=== PATIENT | male | born 1950 | race Native Hawaiian/Other Pacific Islander ===

== ENCOUNTER → 2018-01-23 | Outpatient (CLI) | payer MEDICARE, OTHER ==
[2018-01-23 15:55] LABS: Blood Urea Nitrogen 16 mg/dL (9-20)
--- NOTE | 2018-01-26 08:20 | CT ---
EXAMINATION TYPE: CT angio abdomen pelvis DATE OF EXAM: 01/23/2018 COMPARISON: CT abdomen and pelvis September 30, 2011. HISTORY: Follow up aneurysm per order. Pain in back and down legs per patient. CT DLP: 1630.5 mGycm, Automated Exposure Control for Dose Reduction was Utilized. CONTRAST: CTA scan of the abdomen and pelvis is performed without oral and without and with IV Contrast, patien t injected with 100 mL of Isovue 370. Three-D reconstructed images are created on an independent work station and reviewed. FINDINGS: VASCULAR: Aneurysmal change to the infrarenal abdominal aorta measures up to 3.6 cm transversely axia l image 43, slightly larger from prior study where it measured up to 3.3 cm. In addition there is mor e prominent noncalcified mural thrombus occupying greater than 50% of the nondalton lumen. Aneurysm does not extend into iliac bifurcation. Length of aneurysm is roughly 4 to 5 cm. There is patent celiac a xis, SMA, and bilateral single renal arteries with slightly more prominent plaque noted at origin of right renal artery, no definitive significant stenosis is present. There is a patent CUATE identified. There is moderate calcified plaque bilateral common iliac arteries with moderate to severe calcified plaque in the external iliac arteries. There are patent internal iliac arteries with mild to moderate calcified plaque. There is moderate calcified plaque in common femoral arteries extending into super ficial and deep femoral branches. No significant focal stenosis is clearly seen. LUNG BASES: Coronary artery calcification is present which is noted marker for coronary artery diseas e.. LIVER/GB: Heterogeneous hypodense appearance of liver is consistent with diffuse fatty infiltration. Gallbladder is not visualized and presumed surgically absent. PANCREAS: No significant abnormality is seen. SPLEEN: Calcifications scattered throughout the spleen are redemonstrated presumed product of old gra nulomatous disease. ADRENALS: No significant abnormality is seen. KIDNEYS: No significant abnormality is seen. BOWEL: Sutures from appendectomy are seen at base of cecum. No suspicious bowel dilatation. Debris-fi lled stomach suggest recent meal ingestion. PROSTATE/SEMINAL VESICLES: Prostate gland is slightly enlarged in size bulging on bladder base, under lying BPH is suspected. Correlate clinically. LYMPH NODES: No greater than 1cm abdominal or pelvic lymph nodes are appreciated. OSSEOUS STRUCTURES: Calcified disc L1-L2 level is present. Vacuum disc phenomenon L4-L5 level is pres ent. There is moderate to advanced disc space narrowing with vacuum disc phenomenon and endplate scle rosis L5-S1 level. Moderate multilevel spurring in the spine is present OTHER: No significant additional abnormality is seen. IMPRESSION: Aneurysmal change to infrarenal abdominal aorta up to 3.6 cm in diameter with extensive i ntramural thrombus. Advise vascular surgical referral or consultation if has not been performed.
== END ==
LOC: RADCTMAIN 15:25
PROVIDERS: ATTEND Surgery
DX: I71.4 Abdominal aortic aneurysm, without rupture (principal)
CPT/HCPCS: 82565; 84520; 36415; 74174; Q9967

== ENCOUNTER → 2018-06-23 | Outpatient (CLI) | payer MEDICARE, OTHER | END | disposition home or self-care (01) | LOC: RADUSWWP 13:26 | PROVIDERS: ATTEND Family Medicine | DX: I25.119 Atherosclerotic heart disease of native coronary artery with unspecified angina pectoris (principal) | CPT/HCPCS: 93923 ==

== ENCOUNTER → 2019-01-01 | Outpatient (CLI) | payer MEDICARE ==
[2019-01-01 11:41] LABS: Basophils % (A) 1 %; Eosinophils # (A) 0.3 k/uL (0-0.7); Eosinophils % (A) 5 %; HCT 37.4 % (39.0-53.0); HGB 12.2 gm/dL (13.0-17.5); Lymphocytes # (A) 1.9 k/uL (1.0-4.8); Lymphocytes % (A) 33 %; MCH 31.9 pg (25.0-35.0); MCHC 32.7 g/dL (31.0-37.0); MCV 97.4 fL (80.0-100.0); Mean Platelet Volume 6.7; Monocytes # (A) 0.3 k/uL (0-1.0); Monocytes % (A) 5 %; Neutrophils # (A) 3.1 k/uL (1.3-7.7); Neutrophils % (A) 55 %; Platelet Count 216 k/uL (150-450); RBC 3.84 m/uL (4.30-5.90); RDW 14.9 % (11.5-15.5); WBC 5.7 k/uL (3.8-10.6)
[2019-01-01 11:53] LABS: African American GFR (CKD) >90 (>60 ml/min/1.73 sqM); Anion Gap 9 mmol/L; Blood Urea Nitrogen 19 mg/dL (9-20); Carbon Dioxide 26 mmol/L (22-30); Chloride 103 mmol/L (98-107); Potassium 4.9 mmol/L (3.5-5.1); Sodium 138 mmol/L (137-145)
== END | disposition home or self-care (01) ==
LOC: LABPAT 11:01
PROVIDERS: ATTEND Surgery
DX: Z01.812 Encounter for preprocedural laboratory examination (principal); I71.4 Abdominal aortic aneurysm, without rupture; I77.1 Stricture of artery
CPT/HCPCS: 80051; 82565; 84520; 85025

== ENCOUNTER 2019-01-12 06:30 | Inpatient (IN) | payer MEDICARE ==
[2019-01-08 14:24] VITALS: BMI 29.5
[~2019-01-12 06:30] MED LIST: SODIUM CHLORIDE 0.9% 1,000 ML in EMPTY BAG 1 BAG IV ONE
[2019-01-12 07:12] LABS: Glucose,Whole Blood 167 mg/dL (75-99)
[2019-01-12] MEDS ORDERED: MIDAZOLAM 2 MG/2 ML VIAL ONE (07:42)
[2019-01-12] MEDS ORDERED: PROPOFOL 10 MG/ML 20 ML VIAL IV ONE (07:42)
[2019-01-12] MEDS ORDERED: LABETALOL 5 MG/ML VIAL MDV ONE (07:42)
[2019-01-12] MEDS ORDERED: fentaNYL (PF) 50 MCG/ML 2 ML AMP ONE (07:42)
[2019-01-12] MEDS ORDERED: LIDOCAINE 1% INJ 10MG/ML (20 ML MDV) ONE (07:42)
[2019-01-12] MEDS ORDERED: GLYCOPYRROLATE 0.2 MG/ML 2 ML VIAL ONE (07:42)
[2019-01-12] MEDS ORDERED: PHENYLEPHRINE-0.9% NACL SYG 1 MG/10 ML SYRINGE ONE (07:42)
[2019-01-12] MEDS ORDERED: HEPARIN SODIUM,PORCINE 10,000 UNIT/ML 1 ML VIAL ONE (07:42)
[2019-01-12] MEDS ORDERED: NEOSTIGMINE 1 MG/ML 10 ML VIAL ONE (07:42)
[2019-01-12] MEDS ORDERED: PROTAMINE SULFATE 10 MG/ML 5 ML VIAL IV ONE (07:42)
[2019-01-12] MEDS ORDERED: ROCURONIUM BROMIDE 10 MG/ML 10 ML VIAL IV ONE (07:42)
[2019-01-12] MEDS ORDERED: SUCCINYLCHOLINE CHLORIDE 100 MG/5 ML SYR IV ONE (07:42)
[2019-01-12] MEDS ORDERED: ePHEDrine SULFATE/0.9% NACL/PF 50 MG/5 ML SYRINGE IV ONE (07:42)
[2019-01-12 08:19] LABS: Basophils # (A) 0.1 k/uL (0-0.2); Basophils % (A) 1 %; Eosinophils # (A) 0.3 k/uL (0-0.7); Eosinophils % (A) 4 %; Lymphocytes # (A) 2.5 k/uL (1.0-4.8); Lymphocytes % (A) 38 %; MCH 31.5 pg (25.0-35.0); MCHC 33.3 g/dL (31.0-37.0); MCV 94.8 fL (80.0-100.0); Mean Platelet Volume 7.1; Monocytes # (A) 0.4 k/uL (0-1.0); Monocytes % (A) 5 %; Neutrophils # (A) 3.3 k/uL (1.3-7.7); Neutrophils % (A) 51 %; Platelet Count 258 k/uL (150-450); RBC 4.11 m/uL (4.30-5.90); RDW 14.9 % (11.5-15.5); WBC 6.6 k/uL (3.8-10.6)
[2019-01-12 09:43] LABS: Glucose,Whole Blood 161 mg/dL (75-99)
[2019-01-12] MEDS ORDERED: SODIUM CHLORIDE 0.9% 1,000 ML IV ONE (09:59)
[2019-01-12] MEDS ORDERED: IOPAMIDOL-250 100ML BTL INTRAARTER ONE ×3 (10:16→10:17)
[2019-01-12] MEDS ORDERED: IOPAMIDOL-370 50ML BTL INJ ONE (10:17)
[2019-01-12] MEDS ORDERED: IOPAMIDOL-370 100ML BTL INJ ONE ×2 (10:17)
--- NOTE | 2019-01-12 11:33 | P.OP ---
Date of Procedure: 01/12/19 Preoperative Diagnosis: #1 aortoiliac occlusive disease with chronic total occlusion of the right common iliac artery #2 infrarenal abdominal aortic aneurysm #3 right lower extremity nonhealing thigh wound, Roseline classification 5 Postoperative Diagnosis: Same Procedure(s) Performed: #1 ultrasound-guided access of bilateral common femoral arteries #2 retrograde crossing of the right common iliac artery occlusion #3 percutaneous transluminal balloon angioplasty of right common iliac artery #4 percutaneous closure device placement at the left common femoral artery #5 percutaneous endovascular aortic aneurysm repair with AFX2 device #6 percutaneous transluminal balloon angioplasty of bilateral common iliac, external iliac arteries #7 percutaneous stenting of the right common iliac artery with VBX 7 x 39 mm #8 selective bilateral iliofemoral retrograde angiograms, aortogram Implants: Endologix AFX2 25 x 90 mm graft with 25 x 80 mm Harvey cuff 7 x 39 mm VBX stent Anesthesia: GETA Surgeon: Jere Jha Search Engine Optimization Analyst #1: Myrna Morales Estimated Blood Loss (ml): 50 IV fluids (ml): 1,000 Urine output (ml): 450 Pathology: none sent Condition: stable Disposition: PACU Indications for Procedure: 68-year-old gentleman who originally presented to the office secondary to right lower extremity disabling claudication as well as nonhealing wounds in the right thigh. He has been seen and treated for his wounds in the wound care for several months without improvement and upon his workup it was noted that he had diminished ABIs as well as on CT angiogram was noted that he had a greater than 3.5 cm aneurysm at the infrarenal abdominal aorta as well as occlusive disease of bilateral iliac arteries with what appeared to be an occlusion at the right common iliac artery. Due to his occlusive disease as well as his aneurysmal disease he was determined to treat both endovascularly with a bifurcated AFX to graft. He was cleared both medically and from a cardiac standpoint and he presents today for procedure. Description of Procedure: After written informed consent was obtained the patient all risks benefits and competitions were described the patient is brought to the endovascular lab and laid in a supine position the area of the abdomen and bilateral groins were prepped and draped in usual sterile fashion after appropriate anesthetic was performed per the anesthesiologist. A timeout was performed in normal fashion antibiotics were administered prior to incisions. Utilizing ultrasound bilateral common femoral arteries were visualized shown to have posterior calcification. Utilizing a multipurpose needle both common femoral arteries were cannulated and Glidewire was placed followed by 5-Romanian sheaths bilaterally. Heparin was administered and followed with ACTs. Pigtail catheter was then placed at the left common femoral sheath over the Glidewire which was placed into the aorta. Aortogram was then obtained demonstrating chronic total occlusion at the takeoff of the right iliac artery. Utilizing an 035 Glidewire and quick cross catheter through the right femoral sheath the lesion was then crossed dissection technique with .035 glidewire. Once across the lesion aortogram was obtained demonstrating good intraluminal access. Glidewire was then switched for a Amplatz wire and quick cross catheter was removed. At that point it was determined to continue the aortic aneurysm procedure and therefore over the left femoral wire 2 Perclose closure systems were then placed in the normal fashion. Once completed the 5-Romanian sheath was replaced with an 8- Romanian sheath. 035 Glidewire was once again placed into the aorta followed by the quick cross catheter and was switched for a Lunderquist wire. The AFX to sheath was then placed after removal of the 8-Romanian sheath into the aorta just above the bifurcation. Prior to snare catheter placement a 7 x 40 mm balloon was utilized to pre-dilatated the right common iliac artery through the occlusion. Once completed a long 7-Romanian sheath was placed above the bifurcation followed by a snare catheter. The AFX main body 25 x 80 mm device was then placed over the stiff wire and the contralateral wire was snared and pulled to the contralateral side. The AFX to bifurcated device was then transferred into the sheath and advanced under fluoroscopic guidance until the limbs were above the bifurcation. They were then pulled distally and seated at the aortic bifurcation. Once seated the main body was deployed by pulling the yellow cord. Once deployed the ipsilateral limb was then deployed by pulling the yellow coverage sheath. Pigtail catheter was then placed over the wire and advanced to remove the contralateral wire ended pigtail catheter was advanced into the aorta. The ipsilateral limb was then deployed in normal fashion and the introducer sheath was removed by retracting the intercore. Aortogram was then obtained at the renals to determine landing zone for the main body extension device. Once appropriate positioning was obtained a 25 x 90 mm suprarenal Harvey cuff was placed and deployed in normal fashion just beneath the renal arteries. Once completed the pigtail catheter was withdrawn and placed within the iliac cuff a Coda balloon was then placed up the main body sheath and balloon angioplasty of the overlaps was performed. Final angiogram was obtained demonstrating good brisk flow through the aortic body without any evidence of endoleak with good seal of the aneurysm. There was diminished flow going through the right common iliac limb as well as distal to the limb consistent with continued occlusion and dissection therefore we utilized a 7 x 39 mm VBX covered stent and extended the right common iliac stent towards the bifurcation of the internal iliac artery. Once completed a postdilatation balloon with 7 x 40 ultraverse balloon was performed and final angiogram was obtained demonstrating good brisk flow throughout the entirety of the graft as well as bilateral iliac and femoral arteries. All sheaths and catheters were then removed the Perclose closure device was secured on the left femoral artery in normal fashion. Pressure was then held for hemostasis as well as patient was administered 15 mg of protamine. Both groins were then cleansed and dressings were placed. Patient tolerated procedure well had palpable DP pulses at the conclusion of the procedure and was sent to PACU for recovery.
[2019-01-12] MEDS: HYDROcodone/APAP 5-325MG 1 EACH TAB PO PRN ×3 (12:07→20:10)
--- NOTE | 2019-01-12 13:02 | IR ---
EXAMINATION TYPE: IR stent intravas non coronary DATE OF EXAM: 01/12/2019 COMPARISON: NONE HISTORY: Fluoroscopy time. Fluoroscopy was provided to the referring clinician. 20.9 minutes of fluoroscopy provided.
[2019-01-12 14:34] LABS: Glucose,Whole Blood 177 mg/dL (75-99)
[2019-01-12 14:59] LABS: ALT 27 U/L (21-72); AST 21 U/L (17-59); African American GFR (CKD) >90 (>60 ml/min/1.73 sqM); Albumin 3.1 g/dL (3.5-5.0); Alkaline Phosphatase 69 U/L (38-126); Anion Gap 6 mmol/L; Blood Urea Nitrogen 12 mg/dL (9-20); Calcium 8.2 mg/dL (8.4-10.2); Carbon Dioxide 23 mmol/L (22-30); Chloride 109 mmol/L (98-107); Glucose 196 mg/dL (74-99); Potassium 4.2 mmol/L (3.5-5.1); Sodium 138 mmol/L (137-145); Total Bilirubin 0.2 mg/dL (0.2-1.3); Total Protein 6.1 g/dL (6.3-8.2)
--- NOTE | 2019-01-12 15:39 | P.CNPUL ---
History of Present Illness Consult date: 01/12/19 Requesting physician: Jere Jha Reason for consult: other Chief complaint: Abdominal aortic aneurysm, aortoiliac occlusive disease History of present illness: This is a 68-year-old white male patient of Dr. Yeboah with past medical history of diabetes mellitus, [id number] smoking history currently in remission for the last 3 years, hypertension, who has been having pain and the swelling in his right lower extremity for a period of one year. He did develop redness, and eventually developed a wound on his right thigh, that has not been healing for several months, he was referred to vascular surgery. He was found to have aneurysm of greater than 3.5 cm at the infrarenal abdominal aorta and occlusive disease of bilateral iliac arteries and the right common iliac artery occlusion. Patient underwent percutaneous transluminal balloon angioplasty and stenting of the right common iliac artery, balloon angioplasty of bilateral common iliac and external iliac arteries, endovascular aortic aneurysm repair today on 01/12/2019. Patient is seen in the postoperative period in the intensive care unit, he is awake and alert, oriented 3 and he is in reverse Trendelenburg, on 2 L of oxygen with a pulse ox of 100%, afebrile, hemodynamically stable, sinus mechanism with a controlled rate. Today's blood work showed white blood cell count 6.6, hemoglobin of 13, electrolytes and renal profile were unremarkable. Patient is on aspirin and Plavix, and oral pain medications. Review of Systems All systems: negative Constitutional: Denies chills, Denies fever Eyes: denies blurred vision, denies pain Ears, nose, mouth and throat: Denies headache, Denies sore throat Cardiovascular: Denies chest pain, Denies shortness of breath Respiratory: Denies cough Gastrointestinal: Denies abdominal pain, Denies diarrhea, Denies nausea, Denies vomiting Musculoskeletal: Denies myalgias Musculoskeletal: right: ankle swelling, foot pain Integumentary: Reports darkening of skin, Reports wounds, Denies pruritus, Denies rash Neurological: Denies numbness, Denies weakness Psychiatric: Denies anxiety, Denies depression Endocrine: Denies fatigue, Denies weight change Past Medical History Past Medical History: Diabetes Mellitus, Hyperlipidemia, Hypertension, Vascular Disorder Additional Past Medical History / Comment(s): krys leg pain, open wound upper rt thigh-[facility] wound center pt,multiple abdomial hernia History of Any Multi-Drug Resistant Organisms: MRSA Date of last positivie culture/infection: 2010 MDRO Source:: rt thigh wound Past Surgical History: Appendectomy, Bowel Resection, Hernia Repair Additional Past Surgical History / Comment(s): colostomy reversal,hernia with mesh than mesh removal, for history of colonic abscess, and bowel resection Past Anesthesia/Blood Transfusion Reactions: No Reported Reaction Additional Past Anesthesia/Blood Transfusion Reaction / Comment(s): no hx blood transfusion Smoking Status: Former smoker - Past Family History Mother Family Medical History: No Reported History Father Family Medical History: Cancer Additional Family Medical History / Comment(s): bone Medications and Allergies Home Medications Medication Instructions Recorded Confirmed Type Aspirin 325 mg PO DAILY 01/08/19 01/12/19 History Atorvastatin [Lipitor] 10 mg PO HS 01/08/19 01/12/19 History Dulaglutide [Trulicity] 0.75 mg SQ MO 01/08/19 01/12/19 History Gabapentin [Neurontin] 800 mg PO TID 01/08/19 01/12/19 History HYDROcodone/APAP 7.5-325MG [Hiller 1 tab PO TID PRN 01/08/19 01/12/19 History 7.5-325] Insulin Aspart [NovoLOG] 0 units SQ TID-W/MEALS 01/08/19 01/12/19 History Insulin Glargine [Lantus] 40 unit SQ QAM 01/08/19 01/12/19 History Losartan Potassium [Cozaar] 50 mg PO DAILY 01/08/19 01/12/19 History Allergies Allergy/AdvReac Type Severity Reaction Status Date / Time No Known Allergies Allergy Verified 01/12/19 07:06 Physical Exam Vitals: Vital Signs Temp Pulse Pulse Pulse Resp BP BP 01/12/19 13:58 54 L 18 127/62 01/12/19 13:25 53 L 16 143/65 01/12/19 12:55 56 L 16 135/63 01/12/19 12:40 58 L 18 149/70 01/12/19 12:25 58 L 18 153/70 01/12/19 12:11 58 L 16 149/68 01/12/19 11:56 59 L 16 159/69 01/12/19 11:44 58 L 16 141/65 154/74 01/12/19 11:31 55 L 16 141/65 154/50 01/12/19 11:17 58 L 16 141/58 159/55 01/12/19 10:54 96.8 F L 52 L 16 169/58 153/54 01/12/19 07:03 98.9 F 72 18 189/89 207/90 Pulse Ox 01/12/19 13:58 100 01/12/19 13:25 100 01/12/19 12:55 100 01/12/19 12:40 100 01/12/19 12:25 100 01/12/19 12:11 100 01/12/19 11:56 100 01/12/19 11:44 100 01/12/19 11:31 100 01/12/19 11:17 100 01/12/19 10:54 100 01/12/19 07:03 99 Intake and Output 01/12/19 01/12/19 01/12/19 06:59 14:59 22:59 Intake Total 1050 Output Total 1050 Balance 0 Intake: IV 1050 Sodium Chloride 0.9% 1, 0 000 ml In Empty Bag 1 bag @ 1 ML/KG/HR 90.718 mls/ hr IV .Q11H2M ONE Rx#: [id number] Output: Urine 1050 GENERAL EXAM: Alert, pleasant, 68-year-old male on 2l/min with pulse ox 100%, comfortable in no apparent distress. HEAD: Normocephalic/atraumatic. EYES: Normal reaction of pupils, equal size. Conjunctiva pink, sclera white. NOSE: Clear with pink turbinates. THROAT: No erythema or exudates. NECK: No masses, no JVD, no thyroid enlargement, no adenopathy. CHEST: No chest wall deformity. Symmetrical expansion. LUNGS: Equal air entry with no rhonchi, no rales, no wheezing CVS: Regular rate and rhythm, normal S1 and S2, no gallops, no murmurs, no rubs ABDOMEN: Soft, nontender. No hepatosplenomegaly, normal bowel sounds, no guarding or rigidity. EXTREMITIES: No clubbing, mild pretibial right lower leg edema with changes of chronic venous stasis present to bilateral lower extremities, right lower leg is warm to touch, and there is wound on the lateral aspect of the right thigh covered with a dressing no cyanosis, 2+ pulses and upper and lower extremities. MUSCULOSKELETAL: Muscle strength and tone normal. SPINE: No scoliosis or deformity SKIN: Wound present on the lateral aspect of the right thigh, with a dressing, right lower extremity is positive with chronic venous stasis changes and is warm to touch CENTRAL NERVOUS SYSTEM: Alert and oriented -3. No focal deficits, tone is normal in all 4 extremities. PSYCHIATRIC: Alert and oriented -3. Appropriate affect. Intact judgment and insight. Results - Laboratory Findings CBC and BMP: 01/12/19 06:55 01/12/19 14:34 Abnormal lab findings: Abnormal Labs 01/12/19 01/12/19 01/12/19 06:55 07:02 09:31 RBC 4.11 L Chloride Creatinine Glucose POC Glucose (mg/dL) 167 H 161 H Calcium Total Protein Albumin 01/12/19 01/12/19 14:23 14:34 RBC Chloride 109 H Creatinine 0.61 L Glucose 196 H POC Glucose (mg/dL) 177 H Calcium 8.2 L Total Protein 6.1 L Albumin 3.1 L Assessment and Plan Plan: Assessment: #1. Aortoiliac occlusive disease with right common iliac artery chronic occlusion, status post percutaneous angioplasty and stenting of the right common iliac artery, post-op day 0 #2. Infrarenal abdominal aortic aneurysm status post percutaneous endovascular aortic repair, post-op day 0 #3. Nonhealing wound on the right thigh, and right lower extremity claudication related to severe peripheral vascular disease #4. Diabetes mellitus type 2 #5. History of 50-hsmt-coon smoking history, in remission for last 3 years #6. Marijuana use #7. Hypertension Plan: Patient is in no acute distress, no complaints of difficulty breathing, no chest pain, vital signs are stable, lung sounds are clear, no acute issues, continue close hemodynamic monitoring, palpable pulses in bilateral lower extremities, patient will be in the intensive care unit overnight for close hemodynamic monitoring. Will reorder home medications, antibiotics per vascular surgery. Will continue to closely follow along with vascular surgical services. I performed a history & physical examination of the patient and discussed their management with my nurse practitioner, Varsha Zhang. I reviewed the nurse practitioner's note and agree with the documented findings and plan of care. Lung sounds are positive for clear breath sounds. The findings and the impression was discussed with the patient. I attest to the documentation by the nurse practitioner. Time with Patient: Greater than 30
[2019-01-12] MEDS: GABAPENTIN 400 MG CAP PO SCH ×2 (16:16→20:43)
[2019-01-12] MEDS ORDERED: amLODIPine 5 MG TAB PO STA (16:28)
[2019-01-12] MEDS: CLEVIDIPINE BUTYRATE 25 MG in EMPTY BAG 1 BAG IV SCH ×5 (16:38→23:05)
[2019-01-12 17:07] LABS: Glucose,Whole Blood 197 mg/dL (75-99)
[2019-01-12] MEDS: INSULIN ASPART (NovoLOG) 100 UNIT/ML VIAL SQ SCH ×3 (17:27→20:43)
--- NOTE | 2019-01-12 20:32 | P.CONS ---
History of Present Illness - History of Present Illness This is a pleasant 68 years old male with past medical history of diabetes m ellitus, hyperlipidemia, hypertension, vascular disease. He is admitted for aortoiliac occlusive disease with chronic total occlusion of the right common iliac artery and infrarenal abdominal aortic aneurysm as well as right lower extremity nonhealing thigh wound. He underwent transluminal balloon angioplasty of the bilateral common iliac arteries and angioplasty and stenting of right common iliac artery with endovascular aortic aneurysm repair. Today is postop day #0. The patient remains in the ICU. Vitas looks stable. Lap showing normal creatinine 0.6 and sugar controlled. Liver enzymes not elevated. Patient is currently on aspirin and Plavix, as well as pain medication and insulin 14 units daily of Levemir as well as 15 units of NovoLog with meals pt is currently lying in bed , comfortable , no in distress, denies chest pain , no dyspnea, no change in urine habits, no fever Review of Systems CONSTITUTIONAL: No fever, no malaise, no fatigue. HEENT: No recent visual problems or hearing problems. Denied any sore throat. CARDIOVASCULAR: No orthopnea, PND, no palpitations, no syncope. PULMONARY: No shortness of breath, no cough, no hemoptysis. GASTROINTESTINAL: No diarrhea, no nausea, no vomiting, no abdominal pain. Normoactive bowel sounds. NEUROLOGICAL: No headaches, no weakness, no numbness. HEMATOLOGICAL: Denies any bleeding or petechiae. GENITOURINARY: Denies any burning micturition, frequency, or urgency. MUSCULOSKELETAL/RHEUMATOLOGICAL: Denies any joint pain, swelling, or any muscle pain. ENDOCRINE: Denies any polyuria or polydipsia. Past Medical History Past Medical History: Diabetes Mellitus, Hyperlipidemia, Hypertension, Vascular Disorder Additional Past Medical History / Comment(s): krys leg pain, open wound upper rt thigh-[facility] wound center pt,multiple abdomial hernia History of Any Multi-Drug Resistant Organisms: MRSA Year Discovered:: 2010 MDRO Source:: rt thigh wound Past Surgical History: Appendectomy, Bowel Resection, Hernia Repair Additional Past Surgical History / Comment(s): colostomy reversal,hernia with me sh than mesh removal, for history of colonic abscess, and bowel resection Past Anesthesia/Blood Transfusion Reactions: No Reported Reaction Additional Past Anesthesia/Blood Transfusion Reaction / Comm: no hx blood transfusion Smoking Status: Former smoker - Past Family History Mother Family Medical History: No Reported History Father Family Medical History: Cancer Additional Family Medical History / Comment(s): bone Medications and Allergies Home Medications Medication Instructions Recorded Confirmed Type Aspirin 325 mg PO DAILY 01/08/19 01/12/19 History Atorvastatin [Lipitor] 10 mg PO HS 01/08/19 01/12/19 History Dulaglutide [Trulicity] 0.75 mg SQ MO 01/08/19 01/12/19 History Gabapentin [Neurontin] 800 mg PO TID 01/08/19 01/12/19 History HYDROcodone/APAP 7.5-325MG [[place] 1 tab PO TID PRN 01/08/19 01/12/19 History 7.5-325] Insulin Aspart [NovoLOG] 0 units SQ TID-W/MEALS 01/08/19 01/12/19 History Insulin Glargine [Lantus] 40 unit SQ QAM 01/08/19 01/12/19 History Losartan Potassium [Cozaar] 50 mg PO DAILY 01/08/19 01/12/19 History Allergies Allergy/AdvReac Type Severity Reaction Status Date / Time No Known Allergies Allergy Verified 01/12/19 07:06 Physical Exam Vitals: Vital Signs Temp Pulse Pulse Pulse Pulse Resp BP 01/12/19 16:00 51 L 7 L 158/67 01/12/19 15:45 60 12 151/69 01/12/19 15:30 63 12 01/12/19 15:15 75 14 159/76 01/12/19 15:00 68 12 147/66 01/12/19 14:45 64 14 01/12/19 14:30 65 13 139/68 01/12/19 14:22 65 14 01/12/19 13:58 54 L 18 01/12/19 13:25 53 L 16 01/12/19 12:55 56 L 16 01/12/19 12:40 58 L 18 01/12/19 12:25 58 L 18 01/12/19 12:11 58 L 16 01/12/19 11:56 59 L 16 01/12/19 11:44 58 L 16 01/12/19 11:31 55 L 16 01/12/19 11:17 58 L 16 01/12/19 10:54 96.8 F L 52 L 16 01/12/19 07:03 98.9 F 72 18 BP BP Pulse Ox 01/12/19 16:00 97 01/12/19 15:45 97 01/12/19 15:30 98 01/12/19 15:15 99 01/12/19 15:00 99 01/12/19 14:45 97 01/12/19 14:30 98 01/12/19 14:22 97 01/12/19 13:58 127/62 100 01/12/19 13:25 143/65 100 01/12/19 12:55 135/63 100 01/12/19 12:40 149/70 100 01/12/19 12:25 153/70 100 01/12/19 12:11 149/68 100 01/12/19 11:56 159/69 100 01/12/19 11:44 141/65 154/74 100 01/12/19 11:31 141/65 154/50 100 01/12/19 11:17 141/58 159/55 100 01/12/19 10:54 169/58 153/54 100 01/12/19 07:03 189/89 207/90 99 Intake and Output 01/12/19 01/12/19 01/12/19 06:59 14:59 22:59 Intake Total 1050 300 Output Total 1050 350 Balance 0 -50 Intake: IV 1050 300 Sodium Chloride 0.9% 1, 0 300 000 ml In Empty Bag 1 bag @ 1 ML/KG/HR 90.718 mls/ hr IV .Q11H2M [facility] Rx#: [id number] Output: Urine 1050 350 ABP, PAP, CO, CI - Last 8 Hours Arterial Blood Pressure 169/55 Arterial Blood Pressure 171/58 Arterial Blood Pressure 172/52 GENERAL: The patient is alert and oriented x3, not in any acute distress. Well developed, well nourished. HEENT: Pupils are round and equally reacting to light. EOMI. No scleral icterus. No conjunctival pallor. Normocephalic, atraumatic. No pharyngeal erythema. No thyromegaly. CARDIOVASCULAR: S1 and S2 present. No murmurs, rubs, or gallops. PULMONARY: Chest is clear to auscultation, no wheezing or crackles. ABDOMEN: Soft, nontender, nondistended, normoactive bowel sounds. No palpable organomegaly. MUSCULOSKELETAL: No joint swelling or deformity. -EXTREMITIES: No cyanosis, clubbing, or pedal edema. B/L femoral wounds from his surgery are closed and dressing is in place NEUROLOGICAL: Gross neurological examination did not reveal any focal deficits. SKIN: No rashes. No petechiae Results CBC & Chem 7: 01/12/19 06:55 01/12/19 14:34 Labs: Abnormal Lab Results - Last 24 Hours (Table) 01/12/19 01/12/19 01/12/19 Range/Units 06:55 07:02 09:31 RBC 4.11 L (4.30-5.90) m/uL Chloride (98-107) mmol/L Creatinine (0.66-1.25) mg/dL Glucose (74-99) mg/dL POC Glucose (mg/dL) 167 H 161 H (75-99) mg/dL Calcium (8.4-10.2) mg/dL Total Protein (6.3-8.2) g/dL Albumin (3.5-5.0) g/dL 01/12/19 01/12/19 01/12/19 Range/Units 14:23 14:34 16:55 RBC (4.30-5.90) m/uL Chloride 109 H (98-107) mmol/L Creatinine 0.61 L (0.66-1.25) mg/dL Glucose 196 H (74-99) mg/dL POC Glucose (mg/dL) 177 H 197 H (75-99) mg/dL Calcium 8.2 L (8.4-10.2) mg/dL Total Protein 6.1 L (6.3-8.2) g/dL Albumin 3.1 L (3.5-5.0) g/dL Assessment and Plan Assessment: Vascular occlusive disease. Status post transluminal balloon angioplasty of the bilateral common iliac arteries and angioplasty and stenting of right common iliac artery Infrarenal aortic aneurysm, status post endovascular aortic aneurysm repair Diabetes mellitus Hypertension Hyperlipidemia Plan: This is a pleasant 68 years old male who was admitted for angioplasty and stenting of the right iliac artery, and aortic aneurysm repair. Patient postoperatively was admitted to the ICU with surgical team following the case. Continue with aspirin, Plavix, insulin. Pain management and DVT prophylaxis as per the primary team Labs and medication were reviewed.. Continue same treatment. Continue with symptomatic treatment. Resume home medication. Monitor lytes and vitals. DVT and GI prophylaxis. Further recommendations of the clinical course of the patient
[2019-01-12 20:38] LABS: Glucose,Whole Blood 216 mg/dL (75-99)
[2019-01-12] MEDS: amLODIPine 5 MG TAB PO SCH (20:43)
[2019-01-12] MEDS ORDERED: ATORVASTATIN 10 MG TAB PO SCH (21:00)
[2019-01-13] MEDS: CLEVIDIPINE BUTYRATE 25 MG in EMPTY BAG 1 BAG IV SCH ×5 (00:06→08:09)
[2019-01-13] MEDS: HYDROcodone/APAP 5-325MG 1 EACH TAB PO PRN ×4 (00:06→12:21)
[2019-01-13 06:33] LABS: Basophils % (A) 0 %; Eosinophils # (A) 0.2 k/uL (0-0.7); Eosinophils % (A) 3 %; HCT 34.3 % (39.0-53.0); HGB 11.2 gm/dL (13.0-17.5); Lymphocytes # (A) 1.4 k/uL (1.0-4.8); Lymphocytes % (A) 23 %; MCH 31.6 pg (25.0-35.0); MCHC 32.6 g/dL (31.0-37.0); Mean Platelet Volume 6.9; Monocytes # (A) 0.4 k/uL (0-1.0); Monocytes % (A) 6 %; Neutrophils # (A) 4.1 k/uL (1.3-7.7); Neutrophils % (A) 67 %; Platelet Count 209 k/uL (150-450); RBC 3.54 m/uL (4.30-5.90); RDW 14.8 % (11.5-15.5); WBC 6.2 k/uL (3.8-10.6)
[2019-01-13 06:45] LABS: African American GFR (CKD) >90 (>60 ml/min/1.73 sqM); Anion Gap 6 mmol/L; Blood Urea Nitrogen 9 mg/dL (9-20); Calcium 8.3 mg/dL (8.4-10.2); Carbon Dioxide 24 mmol/L (22-30); Chloride 106 mmol/L (98-107); Glucose 181 mg/dL (74-99); Potassium 4.1 mmol/L (3.5-5.1); Sodium 136 mmol/L (137-145)
[2019-01-13] MEDS ORDERED: INSULIN DETEMIR (LEVEMIR) 100 UNIT/ML SYR SQ SCH (07:00)
[2019-01-13 07:05] LABS: Glucose,Whole Blood 187 mg/dL (75-99)
[2019-01-13] MEDS: INSULIN ASPART (NovoLOG) 100 UNIT/ML VIAL SQ SCH ×4 (07:14→12:19)
[2019-01-13] MEDS: amLODIPine 5 MG TAB PO SCH (08:25)
[2019-01-13] MEDS: GABAPENTIN 400 MG CAP PO SCH (08:25)
--- NOTE | 2019-01-13 08:30 | P.DS ---
Providers Date of admission: 01/12/19 06:30 Attending physician: Jere Jha DO Consults: 01/12/19 06:05 Consult to Anesthesia Routine Consulting Provider: Anesthesia,Services Consult Reason/Comments: General anesthesia for Aortic Stent procedure 01/12/19 11:35 Consult Physician Routine Consulting Provider: Alessandro Barrios Reason/Comments: icu care Do you want consulting provider notified?: Yes 01/12/19 13:25 Consult Physician Routine Consulting Provider: Marcos Jennings Consult Reason/Comments: medical management Do you want consulting provider notified?: Yes Primary care physician: Flavio Valencia [facility] Course: the patient is a 68-year-old male who was brought in as an outpatient for an abdominal aortic aneurysm repair and iliac occlusive disease. he underwent this procedure on 01/12/2019 without any significant complications. He is seen and examined in the ICU today, overall he is doing well. He still remains on IV medications for blood pressure control, he has not received his morning dose of his home medications. He is sitting up in a chair doing well. His bilateral groins are soft without any evidence of hematoma. He has a palpable left dorsalis pedis, he has signals at his right DP and PT. His feet are warm with adequate capillary refill. Overall he is feeling quite well, his vital signs are stable. We will anticipate discharge home later today blood pressure control remains adequate on oral medications. He will be sent home with a prescription for Plavix given his occlusive disease also. He'll follow up with Dr. Jha in 2 weeks. He was found to be in satisfactory condition for discharge pending blood pressure after home medications Patient Condition at Discharge: Good Plan - Discharge Summary Discharge Rx Participant: Yes New Discharge Prescriptions: New Clopidogrel [Plavix] 75 mg PO DAILY #30 tablet No Action Gabapentin [Neurontin] 800 mg PO TID Aspirin 325 mg PO DAILY Losartan Potassium [Cozaar] 50 mg PO DAILY Atorvastatin [Lipitor] 10 mg PO HS Dulaglutide [Trulicity] 0.75 mg SQ MO HYDROcodone/APAP 7.5-325MG [[place] 7.5-325] 1 tab PO TID PRN PRN Reason: Pain Insulin Glargine [Lantus] 40 unit SQ QAM Insulin Aspart [NovoLOG] 0 units SQ TID-W/MEALS Discharge Medication List Aspirin 325 mg PO DAILY 01/08/19 [History] Atorvastatin [Lipitor] 10 mg PO HS 01/08/19 [History] Dulaglutide [Trulicity] 0.75 mg SQ MO 01/08/19 [History] Gabapentin [Neurontin] 800 mg PO TID 01/08/19 [History] HYDROcodone/APAP 7.5-325MG [[place] 7.5-325] 1 tab PO TID PRN 01/08/19 [History] Insulin Aspart [NovoLOG] 0 units SQ TID-W/MEALS 01/08/19 [History] Insulin Glargine [Lantus] 40 unit SQ QAM 01/08/19 [History] Losartan Potassium [Cozaar] 50 mg PO DAILY 01/08/19 [History] Clopidogrel [Plavix] 75 mg PO DAILY #30 tablet 01/13/19 [Rx] Follow up Appointment(s)/Referral(s): Jere Jha DO [STAFF PHYSICIAN] - 2 Weeks Activity/Diet/Wound Care/Special Instructions: resume diet as tolerated. Activity as tolerated. May shower, no soaking. Continue home medications, additional prescription on Plavix given Discharge Disposition: HOME SELF-CARE
[2019-01-13] MEDS ORDERED: CLOPIDOGREL 75 MG TAB PO SCH (09:00)
[2019-01-13] MEDS ORDERED: LOSARTAN 50 MG TAB PO SCH (09:00)
[2019-01-13] MEDS ORDERED: ASPIRIN 81 MG PO SCH (09:00)
[2019-01-13] MEDS ORDERED: LOSARTAN 50 MG TAB PO STA (09:41)
--- NOTE | 2019-01-13 11:48 | P.PN ---
Subjective Progress Note Date: 01/13/19 Principal diagnosis: Status post :1ultrasound-guided access of bilateral common femoral arteries #2 retrograde crossing of the right common iliac artery occlusion #3 percutaneous transluminal balloon angioplasty of right common iliac artery #4 percutaneous closure device placement at the left common femoral artery #5 percutaneous endovascular aortic aneurysm repair with AFX2 device #6 percutaneous transluminal balloon angioplasty of bilateral common iliac, external iliac arteries #7 percutaneous stenting of the right common iliac artery with VBX 7 x 39 mm #8 selective bilateral iliofemoral retrograde angiograms, aortogram This is a 68-year-old white male patient of Dr. Yeboah with past medical history of diabetes mellitus, 55-lnrx-iral smoking history currently in remission for the last 3 years, hypertension, who has been having pain and the swelling in his right lower extremity for a period of one year. He did develop redness, and eventually developed a wound on his right thigh, that has not been healing for several months, he was referred to vascular surgery. He was found to have aneurysm of greater than 3.5 cm at the infrarenal abdominal aorta and occlusive disease of bilateral iliac arteries and the right common iliac artery occlusion. Patient underwent percutaneous transluminal balloon angioplasty and stenting of the right common iliac artery, balloon angioplasty of bilateral common iliac and external iliac arteries, endovascular aortic aneurysm repair today on 01/12/2019. Patient is seen in the postoperative period in the intensive care unit, he is awake and alert, oriented 3 and he is in reverse Trendelenburg, on 2 L of oxygen with a pulse ox of 100%, afebrile, hemodynamically stable, sinus mechanism with a controlled rate. Today's blood work showed white blood cell count 6.6, hemoglobin of 13, electrolytes and renal profile were unremarkable. Patient is on aspirin and Plavix, and oral pain medications. Reevaluated today on 01/13/2019, patient is doing well, asymptomatic. No shortness of breath no cough no wheezing, no nausea no vomiting no abdominal pain, no pain or discomfort and lower extremities. Patient was already seen by vascular surgery, and he is being considered for discharge today. Blood pressure is a bit elevated, hence I recommended that we continue amlodipine 5 mg twice a day, and I recommended that he increase his losartan to 100 mg daily instead of 50 mg daily. Objective - Vital Signs Vital signs: Vital Signs Temp 97.7 F 01/13/19 08:00 Pulse 105 H 01/13/19 11:00 Resp 14 01/13/19 11:00 BP 148/71 01/13/19 11:00 Pulse Ox 94 L 01/13/19 11:00 Intake & Output 01/12/19 01/13/19 01/13/19 18:59 06:59 18:59 Intake Total 8028.480 5963.067 599.6 Output Total 1550 1660 345 Balance 47.133 -210.933 254.6 Weight 104.2 kg Intake: IV 1550 1200 520 Sodium Chloride 0.9% 1, 500 1200 520 000 ml In Empty Bag 1 bag @ 1 ML/KG/HR 90.718 mls/ hr IV .Q11H2M [facility] Rx#: [id number] Intake, IV Titration 47.133 249.067 79.6 Amount Clevidipine Butyrate 25 47.133 249.067 79.6 mg In Empty Bag 1 bag @ 1 MG/HR 2 mls/hr IV .Q24H [facility] Rx#:[id number] Output: Urine 1550 1660 345 Other: Voiding Method Indwelling Catheter Indwelling Catheter ABP, PAP, CO, CI - Last Documented Arterial Blood Pressure 133/48 - Exam GENERAL EXAM: Revealed a 68-year-old white male very pleasant in no distress, on room air.. HEENT: PERRLA, EOMI, no icterus. CHEST: No chest wall deformity. Symmetrical expansion. LUNGS: Equal air entry with no rhonchi, no rales, no wheezing CVS: Regular rate and rhythm, normal S1 and S2, no gallops, no murmurs, no rubs ABDOMEN: Obese soft nontender no megaly no rebound. No guarding. EXTREMITIES: No clubbing, edema or cyanosis, good pulses bilaterally in upper and lower extremities. MUSCULOSKELETAL: Muscle strength and tone normal. No limitations in range of motion, no deformities. SPINE: No scoliosis or deformity SKIN: Wound present on the lateral aspect of the right thigh, with a dressing, right lower extremity is positive with chronic venous stasis changes and is warm to touch CENTRAL NERVOUS SYSTEM: Alert and oriented -3. No focal deficits, tone is normal in all 4 extremities. PSYCHIATRIC: Normal mood, affect and normal mental status examination. - Labs CBC & Chem 7: 01/13/19 06:10 01/13/19 06:10 Labs: Abnormal Lab Results - Last 24 Hours (Table) 01/12/19 01/12/19 01/12/19 Range/Units 14:23 14:34 16:55 RBC (4.30-5.90) m/uL Hgb (13.0-17.5) gm/dL Hct (39.0-53.0) % Sodium (137-145) mmol/L Chloride 109 H (98-107) mmol/L Creatinine 0.61 L (0.66-1.25) mg/dL Glucose 196 H (74-99) mg/dL POC Glucose (mg/dL) 177 H 197 H (75-99) mg/dL Calcium 8.2 L (8.4-10.2) mg/dL Total Protein 6.1 L (6.3-8.2) g/dL Albumin 3.1 L (3.5-5.0) g/dL 01/12/19 01/13/19 01/13/19 Range/Units 20:26 06:10 06:10 RBC 3.54 L (4.30-5.90) m/uL Hgb 11.2 L (13.0-17.5) gm/dL Hct 34.3 L (39.0-53.0) % Sodium 136 L (137-145) mmol/L Chloride (98-107) mmol/L Creatinine 0.58 L (0.66-1.25) mg/dL Glucose 181 H (74-99) mg/dL POC Glucose (mg/dL) 216 H (75-99) mg/dL Calcium 8.3 L (8.4-10.2) mg/dL Total Protein (6.3-8.2) g/dL Albumin (3.5-5.0) g/dL 01/13/19 Range/Units 06:54 RBC (4.30-5.90) m/uL Hgb (13.0-17.5) gm/dL Hct (39.0-53.0) % Sodium (137-145) mmol/L Chloride (98-107) mmol/L Creatinine (0.66-1.25) mg/dL Glucose (74-99) mg/dL POC Glucose (mg/dL) 187 H (75-99) mg/dL Calcium (8.4-10.2) mg/dL Total Protein (6.3-8.2) g/dL Albumin (3.5-5.0) g/dL Assessment and Plan Assessment: #1. Aortoiliac occlusive disease with right common iliac artery chronic occlusion, status post percutaneous angioplasty and stenting of the right common iliac artery, postoperative day #1 #2. Infrarenal abdominal aortic aneurysm status post percutaneous endovascular aortic repair, post-op day #1 #3. Nonhealing wound on the right thigh, and right lower extremity claudication related to severe peripheral vascular disease #4. Diabetes mellitus type 2 #5. History of 43-subz-hyar smoking history, in remission for last 3 years #6. Marijuana use #7. Hypertension Recommendation: Agree with discharge planning today, however considering the patient's blood pressure remains on the high side, recommended that we treat the patient with amlodipine 5 mg twice a day and losartan 100 mg daily until he follows up with his primary care physician. Patient will be discharged home today as recommended by vascular surgery on the case. Time with Patient: Less than 30
[2019-01-13 12:17] LABS: Glucose,Whole Blood 255 mg/dL (75-99)
[2019-01-13 14:32] VITALS: BP 121/96; PULSE 85; RESP 20; TEMP 98.7
--- NOTE | 2019-01-13 14:59 | P.PN ---
Subjective This is a pleasant 68 years old male with past medical history of diabetes mellitus, hyperlipidemia, hypertension, vascular disease. He is admitted for aortoiliac occlusive disease with chronic total occlusion of the right common iliac artery and infrarenal abdominal aortic aneurysm as well as right lower extremity nonhealing thigh wound. He underwent transluminal balloon angioplasty of the bilateral common iliac arteries and angioplasty and stenting of right common iliac artery with endovascular aortic aneurysm repair. Today is postop day #0. The patient remains in the ICU. Vitas looks stable. Lap showing normal creatinine 0.6 and sugar controlled. Liver enzymes not elevated. Patient is currently on aspirin and Plavix, as well as pain medication and insulin 14 units daily of Levemir as well as 15 units of NovoLog with meals pt is currently lying in bed , comfortable , no in distress, denies chest pain , no dyspnea, no change in urine habits, no fever Patient is improving, his family awake and oriented. He denies chest pain or dyspnea. No abdominal pain. No pain at the surgical site. Palpable pulses bilaterally. Vitals his is stable so. laps looks stable. Patient is being discharged today by the surgical team, patient sugar was slightly elevated to 55 and he got coverage. Patient was counseled about checking his sugar 4 times days and before bed times and follow-up with his primary care doctor in 1 week and he agrees. Objective - Vital Signs Vital signs: Vital Signs Temp 98.7 F 01/13/19 12:00 Pulse 85 01/13/19 14:00 Resp 20 01/13/19 14:00 BP 121/96 01/13/19 14:00 Pulse Ox 97 01/13/19 14:00 Intake & Output 01/12/19 01/13/19 01/13/19 18:59 06:59 18:59 Intake Total 8891.452 2023.067 599.6 Output Total 1550 1660 645 Balance 47.133 -210.933 -45.4 Weight 104.2 kg Intake: IV 1550 1200 520 Sodium Chloride 0.9% 1, 500 1200 520 000 ml In Empty Bag 1 bag @ 1 ML/KG/HR 90.718 mls/ hr IV .Q11H2M [facility] Rx#: [id number] Intake, IV Titration 47.133 249.067 79.6 Amount Clevidipine Butyrate 25 47.133 249.067 79.6 mg In Empty Bag 1 bag @ 1 MG/HR 2 mls/hr IV .Q24H [facility] Rx#:[id number] Output: Urine 1550 1660 645 Other: Voiding Method Indwelling Catheter Indwelling Catheter ABP, PAP, CO, CI - Last Documented Arterial Blood Pressure 133/48 - Exam GENERAL: The patient is alert and oriented x3, not in any acute distress. Well developed, well nourished. HEENT: Pupils are round and equally reacting to light. EOMI. No scleral icterus. No conjunctival pallor. Normocephalic, atraumatic. No pharyngeal erythema. No thyromegaly. CARDIOVASCULAR: S1 and S2 present. No murmurs, rubs, or gallops. PULMONARY: Chest is clear to auscultation, no wheezing or crackles. ABDOMEN: Soft, nontender, nondistended, normoactive bowel sounds. No palpable organomegaly. MUSCULOSKELETAL: No joint swelling or deformity. -EXTREMITIES: No cyanosis, clubbing, or pedal edema. B/L femoral wounds from his surgery are closed and dressing is in place NEUROLOGICAL: Gross neurological examination did not reveal any focal deficits. SKIN: No rashes. No petechiae - Labs CBC & Chem 7: 01/13/19 06:10 01/13/19 06:10 Labs: Abnormal Lab Results - Last 24 Hours (Table) 01/12/19 01/12/19 01/12/19 Range/Units 14:34 16:55 20:26 RBC (4.30-5.90) m/uL Hgb (13.0-17.5) gm/dL Hct (39.0-53.0) % Sodium (137-145) mmol/L Chloride 109 H (98-107) mmol/L Creatinine 0.61 L (0.66-1.25) mg/dL Glucose 196 H (74-99) mg/dL POC Glucose (mg/dL) 197 H 216 H (75-99) mg/dL Calcium 8.2 L (8.4-10.2) mg/dL Total Protein 6.1 L (6.3-8.2) g/dL Albumin 3.1 L (3.5-5.0) g/dL 01/13/19 01/13/19 01/13/19 Range/Units 06:10 06:10 06:54 RBC 3.54 L (4.30-5.90) m/uL Hgb 11.2 L (13.0-17.5) gm/dL Hct 34.3 L (39.0-53.0) % Sodium 136 L (137-145) mmol/L Chloride (98-107) mmol/L Creatinine 0.58 L (0.66-1.25) mg/dL Glucose 181 H (74-99) mg/dL POC Glucose (mg/dL) 187 H (75-99) mg/dL Calcium 8.3 L (8.4-10.2) mg/dL Total Protein (6.3-8.2) g/dL Albumin (3.5-5.0) g/dL 01/13/19 Range/Units 12:05 RBC (4.30-5.90) m/uL Hgb (13.0-17.5) gm/dL Hct (39.0-53.0) % Sodium (137-145) mmol/L Chloride (98-107) mmol/L Creatinine (0.66-1.25) mg/dL Glucose (74-99) mg/dL POC Glucose (mg/dL) 255 H (75-99) mg/dL Calcium (8.4-10.2) mg/dL Total Protein (6.3-8.2) g/dL Albumin (3.5-5.0) g/dL Assessment and Plan Assessment: Vascular occlusive disease. Status post transluminal balloon angioplasty of the bilateral common iliac arteries and angioplasty and stenting of right common iliac artery Infrarenal aortic aneurysm, status post endovascular aortic aneurysm repair Diabetes mellitus Hypertension Hyperlipidemia Plan: This is a pleasant 68 years old male who was admitted for angioplasty and stenting of the right iliac artery, and aortic aneurysm repair. Patient post operatively was admitted to the ICU with surgical team following the case. Continue with aspirin, Plavix, insulin. Pain management and DVT prophylaxis as per the primary team Labs and medication were reviewed.. Continue same treatment. Continue with symptomatic treatment. Resume home medication. Monitor lytes and vitals. DVT and GI prophylaxis. Further recommendations of the clinical course of the patient Patient instructed to follow up with his PCP in one week after discharge and he agrees.
[2019-01-14] MEDS ORDERED: LOSARTAN 50 MG TAB PO SCH (09:00)
== END 2019-01-13 15:00 | disposition home or self-care (01) | DRG 269 ==
LOC: 2ORMAIN 06:30 → 2SICU 13:04
PROVIDERS: ADMIT Surgery; ATTEND Surgery
PROC: B41D1ZZ Fluoroscopy of Aorta and Bilateral Lower Extremity Arteries using Low Osmolar Contrast (ICD-10-PCS; 2019-01-12)
PROC: 04V03DZ Restriction of Abdominal Aorta with Intraluminal Device, Percutaneous Approach (ICD-10-PCS; principal; 2019-01-12 07:50)
PROC: 047C0DZ Dilation of Right Common Iliac Artery with Intraluminal Device, Open Approach (ICD-10-PCS; 2019-01-12 07:50)
PROC: 047H0ZZ Dilation of Right External Iliac Artery, Open Approach (ICD-10-PCS; 2019-01-12 07:50)
DX: I71.4 Abdominal aortic aneurysm, without rupture (principal); I77.9 Disorder of arteries and arterioles, unspecified; E11.51 Type 2 diabetes mellitus with diabetic peripheral angiopathy without gangrene; E78.5 Hyperlipidemia, unspecified; I10 Essential (primary) hypertension; Z79.02 Long term (current) use of antithrombotics/antiplatelets; Z79.4 Long term (current) use of insulin; Z79.82 Long term (current) use of aspirin; Z79.899 Other long term (current) drug therapy; Z86.79 Personal history of other diseases of the circulatory system; Z87.891 Personal history of nicotine dependence; Z90.49 Acquired absence of other specified parts of digestive tract; Z80.8 Family history of malignant neoplasm of other organs or systems; S71.101A Unspecified open wound, right thigh, initial encounter
CPT/HCPCS: 34705; 37220; 37221; 80048; 80053; 85025; 85347; 86850; 86900; 86901

== ENCOUNTER → 2019-03-03 | Outpatient (CLI) | payer MEDICARE ==
[2019-03-03 14:04] LABS: African American GFR (CKD) >90 (>60 ml/min/1.73 sqM); Blood Urea Nitrogen 22 mg/dL (9-20); Non-African American GFR(CKD) 86 (>60 ml/min/1.73 sqM)
--- NOTE | 2019-03-03 15:06 | CT ---
EXAMINATION TYPE: CT angio abdomen pelvis DATE OF EXAM: 03/03/2019 COMPARISON: CTA January 23, 2018. HISTORY: Post OP stent placement in January 2019 CT DLP: 2121.8 mGycm, Automated Exposure Control for Dose Reduction was Utilized. CONTRAST: CTA scan of the abdomen and pelvis is performed without oral and without and with IV Contrast, patien t injected with 100 mL of Isovue 300. Aneurysm protocol with 3-D reconstruction images created on a [employer] workstation and reviewed, aneurysm protocol. FINDINGS: VASCULAR: There is a patent celiac artery with focal narrowing at origin measuring under 50% redemons trated. SMA is patent. 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 [place] AAA me asures up to 3.7 cm transversely axial image 44 series 7 without significant change from prior. Postc ontrast images show patency of the stent graft without extraluminal enhancement or leak identified. N o suspicious extraluminal delayed enhancement is seen. There is background moderate to severe calcifi ed plaque of the iliac arteries with moderate calcified plaque bilateral femoral arteries in the groi n all redemonstrated. LUNG BASES: Stable small posterior medial left diaphragmatic hernia axial image 17 and coronal image 70. LIVER/GB: Gallbladder not visualized presumed surgically absent similar to prior. PANCREAS: No significant abnormality is seen. SPLEEN: Few scattered calcifications throughout the spleen are redemonstrated presumed product of old granulomatous disease. ADRENALS: No significant abnormality is seen. KIDNEYS: No significant abnormality is seen. BOWEL: Few scattered colonic diverticula most prominent involving right colon redemonstrated. No CT e vidence for acute diverticulitis. Sutures from appendectomy at base of cecum again seen. PROSTATE/SEMINAL VESICLES: Upper limits of normal in size. Bladder is poorly distended thus suboptima lly evaluated. LYMPH NODES: No greater than 1cm abdominal or pelvic lymph nodes are appreciated. OSSEOUS STRUCTURES: Persistent calcified disc L1-L2 level. Persistent vacuum disc phenomenon and mild disc space narrowing L4-L5 level. Persistent severe disc space narrowing and vacuum disc phenomenon with moderate to severe anterior spurring L5-S1 level. OTHER: Some fat replaced atrophy of overlying rectus muscles redemonstrated. IMPRESSION: There is new patent Aortobiiliac stent graft with stable saxman AAA and no evidence of en doleak or other complication.
== END | disposition home or self-care (01) ==
LOC: RADCTMAIN 13:08
PROVIDERS: ATTEND Surgery
DX: I71.4 Abdominal aortic aneurysm, without rupture (principal); Z95.828 Presence of other vascular implants and grafts
CPT/HCPCS: 82565; 84520; 74174; Q9967